=== PATIENT | female | born 1995 | race Caucasian/White ===

== ENCOUNTER 2016-05-18 15:21 | Emergency (ER) | payer BC ==
--- NOTE | ~2016-05-18 | CT2 ---
[facility] A Service of [facility] RADIOLOGY TEXT RESULTS PATIENT: YUVAL LERNER LOCATION: [place] : [birth year] UNIT #: [id number] AGE: [address]: Meredith Garland SEX: F ORDER DR: [id number] [facility] [address] [place], [place] [address] [id number] E MR#: [id number] Acc #: [id number] NAME: YUVAL LERNER : 1995 SEX: F STUDY DATE/TIME: 05/18/2016 16:09 UNIT: CFTX ROOM: STUDY DESCRIPTION: CT Abd and Pelv W Cont Attending Physician: Meredith Garland Pa-C Ordering Physician: Meredith Garland Pa-C Primary Care Physician: No Primary Care Physician MEDICAL IMAGING REPORT This report is preliminary unless electronic signature is present EXAM CT of the abdomen and pelvis with IV contrast media. DATE OF EXAM 05/18/2016 HISTORY SUPPLIED Right lower quadrant pain and nausea since this morning. TECHNIQUE Transaxial imaging of the abdomen and pelvis was obtained with IV contrast media: NOTE: This CT exam was performed with one or more of the following radiation dose reduction techniques: automatic exposure control, adjustment of mA and/or kV according to patient size, and iterative reconstruction. FINDINGS Lung bases are clear. The liver, spleen, gallbladder, pancreas, adrenal glands and both kidneys have a normal appearance. No evidence of hydronephrosis or hydroureter. Appendix is not identified on any of the planes. A small amount of fluid is identified within the cul-de-sac. This could represent a recent ovarian cyst rupture. Uterus is unremarkable. Bladder is normal. CONCLUSIONS Small amount of fluid in the cul-de-sac and some fluid in the right adnexa. This could represent a recent cyst rupture. The appendix is not clearly seen, but there is no adjacent inflammation near the cecum to suggest appendicitis. CT of the abdomen and pelvis is otherwise completely normal. Dictated by... [facility] A Service of [facility] RADIOLOGY TEXT RESULTS PATIENT: YUVAL LERNER LOCATION: [facility] : [birth year] UNIT #: [id number] AGE: [address]: Meredith Garland SEX: F ORDER DR: Bayron Rivera M.D. THIS IS AN ELECTRONICALLY VERIFIED REPORT Bayron Rivera M.D. at 05/19/2016 4:26 PM Sarbjit TD: 05/18/2016 19:51 JOB #: [id number] MEDICAL IMAGING REPORT Page 1 of 1 COPY
[2016-05-18 14:44] LABS: URINE SOURCE CLEAN CATCH
[2016-05-18 14:48] LABS: BASOPHIL% 0.5 % (0-2.5); EOSINOPHIL# 0.1 X10e3 (0-0.7); EOSINOPHIL% 1.2 % (0.0-7.0); LYMPHOCYTE# 2.2 X10e3 (1.0-3.5); LYMPHOCYTE% 33.3 % (17.0-45.0); MEAN CELL VOLUME 91.9 FL (83-96); MEAN CORPUSCULAR HEMOGLOBIN 30.7 PG (28-34); MEAN CORPUSCULAR HGB CONC 33.4 g/dL (30-36); MEAN PLATELET VOLUME 8.5 FL (6.5-11.5); MONOCYTE# 0.5 X10e3 (0-1.0); MONOCYTE% 7.2 % (3.0-12.0); NEUTROPHIL# 3.8 X10e3 (1.5-7.1); NEUTROPHIL% 57.8 % (40-75); PLATELET COUNT 182 X10e3 (140-420); RED BLOOD COUNT 4.57 X10e (3.90-5.30); RED CELL DISTRIBUTION WIDTH 12.4 % (11.0-15.5); WHITE BLOOD COUNT 6.5 X10e3 (4.0-10.5)
[2016-05-18 14:50] LABS: URINE APPEARANCE CLEAR; URINE BILIRUBIN NEG (NEG); URINE BLOOD NEG (NEG); URINE COLOR YELLOW; URINE GLUCOSE NEG (NEG); URINE KETONE NEG (NEG); URINE LEUKOCYTE ESTERASE NEG (NEG); URINE NITRATE NEG (NEG); URINE PH 6.5 (5-8); URINE PROTEIN NEG (NEG); URINE SPECIFIC GRAVITY 1.009 (1.003-1.035); URINE UROBILINOGEN 0.2 MG/DL (NEG)
[2016-05-18 14:53] LABS: CULTURE INDICATED? NO
[2016-05-18 14:56] LABS: DIFF IND NO
[2016-05-18 15:19] LABS: ALBUMIN SERUM 4.4 g/dL (3.5-5.0); BILIRUBIN, DIRECT 0.1 mg/dL (0.0-0.2); BILIRUBIN,INDIRECT 0.5 mg/dL (0.0-0.9); BILIRUBIN,TOTAL 0.6 mg/dL (0.2-2.0); BUN/CREATININE RATIO 17.5; CREATININE SERUM 0.4 mg/dL (0.6-1.4); POTASSIUM 3.5 mmol/L (3.5-5.1); PROTEIN TOTAL SERUM 7.3 g/dL (6.0-8.3)
[~2016-05-18 15:21] MED LIST: ACCUTANE20 MG PO; BIRTH CONTROL PILL PO; TRAZODONE PO; VYVANSE30 MG PO; WELLBUTRIN100 MG PO; ZYRTEC10 M2 PO
== END 2016-05-18 16:50 | disposition home or self-care (01) ==
LOC: CFTX 15:21
PROVIDERS: Physician Assistant Medical
DX: N83.201 Unspecified ovarian cyst, right side (principal)
CPT/HCPCS: 36415; 74177; 80048; 80076; 81003; 83690; 84703; 85025; 99284; J1885; Q9967